=== PATIENT | female | born 1990 | race Caucasian/White ===

== ENCOUNTER 2019-11-28 11:13 | Emergency (ER) | payer OTHER ==
[~2019-11-28] VITALS: Ht 175.3 cm; Wt 57.2 kg
--- NOTE | 2019-11-28 11:23 | NUR ---
PT IS IN ROOM 1B. DR CIFUENTES EVALUATED THE PT.
[2019-11-28] MEDS ORDERED: LORAZEPAM 0.5 MG TABLET PO ONE (11:30)
[2019-11-28] MEDS ORDERED: LORAZEPAM 1 MG TABLET ONE (11:43)
--- NOTE | 2019-11-28 14:11 | NUR ---
PT WAS D/C'd TO HOME. D/C INSTRUCTIONS GIVEN TO THE PT BY DR CIFUENTES. GAIT IS STABLE. NO S/S OF DISTRESS. PT DENIES PAIN. NO SOB. NO N/V.
[2019-11-28 14:12] VITALS: BP 125/71
== END 2019-11-28 14:13 | disposition home or self-care (01) ==
LOC: ER 11:21
DX: F14.10 Cocaine abuse, uncomplicated (principal)
CPT/HCPCS: A4663